=== PATIENT | male | born 1980 | race Caucasian/White ===

== ENCOUNTER 2018-09-04 11:29 | Outpatient (CLI) | payer MEDICARE | END 2018-09-04 11:30 | disposition short-term general hospital (02) | LOC: EMS 11:29 | PROVIDERS: ATTEND Surgery | DX: S21.112A Laceration without foreign body of left front wall of thorax without penetration into thoracic cavity, initial encounter (principal); X78.1XXA Intentional self-harm by knife, initial encounter | CPT/HCPCS: A0170; A0425; A0427 ==

== ENCOUNTER 2018-10-08 14:00 | Outpatient (CLI) | payer MEDICARE | END 2018-10-08 14:01 | disposition EMS.NT | LOC: EMS 14:00 | PROVIDERS: ATTEND Surgery | DX: Z04.1 Encounter for examination and observation following transport accident (principal) ==

== ENCOUNTER 2018-10-10 12:38 | Emergency (ER) | payer OTHER, MEDICARE ==
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
[2018-10-10] MEDS ORDERED: IOVERSOL 320 100 ML VIAL IVP ONE ×3 (13:41→15:37)
[2018-10-10 15:01] LABS: BASOPHILS # (AUTO) 0.1 10^3/uL (0.0-0.1); BASOPHILS % (AUTO) 0.9 %; EOSINOPHILS # (AUTO) 0.6 10^3/uL (0.0-0.7); EOSINOPHILS % (AUTO) 5.4 %; HGB - HEMOGLOBIN 13.8 g/dL (14.0-18.0); LYMPHOCYTES # (AUTO) 3.2 10^3/uL (1.5-3.5); LYMPHOCYTES % (AUTO) 27.4 %; MEAN CORPUSCULAR HEMOGLOBIN 27.5 pg (27.0-31.0); MEAN CORPUSCULAR HGB CONC 32.9 g/dL (32.0-36.0); MEAN CORPUSCULAR VOLUME 83.6 fL (80.0-94.0); MEAN PLATELET VOLUME 7.1 fL (7.4-11.4); MONOCYTES # (AUTO) 0.9 10^3/uL (0.0-1.0); MONOCYTES % (AUTO) 7.8 %; NEUTROPHILS # (AUTO) 6.9 10^3/uL (1.5-6.6); NEUTROPHILS % (AUTO) 58.5 %; PLT - PLATELET COUNT 310 10^3/uL (130-450); RED BLOOD COUNT 5.01 10^6/uL (4.70-6.10); RED CELL DISTRIBUTION WIDTH 15.8 % (12.0-15.0); WHITE BLOOD COUNT 11.8 x10^3/uL (4.8-10.8)
[2018-10-10 15:07] LABS: CALCIUM 9.7 mg/dL (8.5-10.3); CREATININE 0.6 mg/dL (0.6-1.2)
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
[2018-10-10 17:10] VITALS: BP 116/83
== END 2018-10-10 16:19 | disposition home or self-care (01) ==
LOC: ED 12:38
DX: R07.89 Other chest pain (principal); J90 Pleural effusion, not elsewhere classified; I31.3 Pericardial effusion (noninflammatory); F17.200 Nicotine dependence, unspecified, uncomplicated; Z79.82 Long term (current) use of aspirin; V49.50XA Passenger injured in collision with unspecified motor vehicles in traffic accident, initial encounter
CPT/HCPCS: 36415; 71260; 80048; 85025; 93005; 99283; Q9967

== ENCOUNTER 2019-08-06 19:38 | Emergency (ER) | payer MEDICARE, MEDICAID ==
[2019-08-06] MEDS ORDERED: SODIUM CHLORIDE 0.9% 1,000 ML IV ONE ×2 (21:43→21:47)
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
[2019-08-06] MEDS ORDERED: DEXAMETHASONE 10 MG/ML VIAL IVP STA (21:48)
[2019-08-06 22:06] LABS: BASOPHILS # (AUTO) 0.1 10^3/uL (0.0-0.1); BASOPHILS % (AUTO) 0.7 %; EOSINOPHILS # (AUTO) 0.4 10^3/uL (0.0-0.7); EOSINOPHILS % (AUTO) 3.4 %; HGB - HEMOGLOBIN 13.8 g/dL (14.0-18.0); LYMPHOCYTES % (AUTO) 25.6 %; MEAN CORPUSCULAR HEMOGLOBIN 30.4 pg (27.0-31.0); MEAN CORPUSCULAR HGB CONC 33.7 g/dL (32.0-36.0); MEAN CORPUSCULAR VOLUME 90.3 fL (80.0-94.0); MEAN PLATELET VOLUME 9.2 fL (7.4-11.4); MONOCYTES # (AUTO) 1.6 10^3/uL (0.0-1.0); MONOCYTES % (AUTO) 13.4 %; NEUTROPHILS # (AUTO) 6.5 10^3/uL (1.5-6.6); NEUTROPHILS % (AUTO) 56.3 %; PLT - PLATELET COUNT 286 10^3/uL (130-450); RED BLOOD COUNT 4.54 10^6/uL (4.70-6.10); RED CELL DISTRIBUTION WIDTH 13.1 % (12.0-15.0); WHITE BLOOD COUNT 11.6 x10^3/uL (4.8-10.8)
[2019-08-06 22:20] LABS: ALBUMIN/GLOBULIN RATIO 1.4 (1.0-2.2); BILIRUBIN,TOTAL 0.5 mg/dL (0.2-1.0); CALCIUM 9.1 mg/dL (8.5-10.3); CREATININE 0.8 mg/dL (0.6-1.2); TOTAL PROTEIN 6.8 g/dL (6.7-8.2)
--- NOTE | 2019-08-06 22:35 | XRAY Report ---
Reason: tachycardia left arm pain Procedure Date: 08/06/2019 Accession Number: [id number] / [id number] Procedure: XR - Chest 1 View X-Ray CPT Code: 38974 FULL RESULT: EXAM: CHEST RADIOGRAPHY EXAM DATE: 08/06/2019 10:05 PM. CLINICAL HISTORY: Tachycardia left arm pain. COMPARISON: CHEST W/ 10/10/2018 3:16 PM. TECHNIQUE: 1 view. FINDINGS: Lungs/Pleura: Mildly elevated left hemidiaphragm and scarring appear unchanged. No pneumothorax. No consolidation or airspace disease. No definite pleural effusion. No new findings are seen. Mediastinum: Within exam limitations, the cardiomediastinal contour is normal. IMPRESSION: Mildly elevated left hemidiaphragm and scarring again noted. No acute findings are seen. RADIA
[2019-08-06] MEDS ORDERED: HYDROcod/ACET 5/325 Prepack 4 PO STA (23:26)
[2019-08-06] MEDS ORDERED: KETOROLAC 30 MG/ML VIAL IVP STA (23:26)
[2019-08-06] MEDS ORDERED: CYCLOBENZAPRINE 10 MG Prepack 2 PO PRN (23:26)
[2019-08-06 23:31] VITALS: BP 145/104
== END 2019-08-06 23:51 | disposition home or self-care (01) ==
LOC: ED 19:38
DX: M54.12 Radiculopathy, cervical region (principal); E86.0 Dehydration; R00.0 Tachycardia, unspecified; F17.200 Nicotine dependence, unspecified, uncomplicated; Z79.82 Long term (current) use of aspirin
CPT/HCPCS: 36415; 71045; 80053; 83690; 84484; 85025; 93005; 96361; 96374; 96375; 99283